=== PATIENT | male | born 1970 | race Caucasian/White ===

== ENCOUNTER → 2016-07-14 | Outpatient (REF) | payer OTHER ==
[2016-07-14 13:09] LABS: EOS # 0.3 K/mm3 (0.0-0.50); EOS % 5.3 % (0.0-3.0); LARGE UNSTAINED CELL # 0.1 K/mm3 (0.0-0.4); LARGE UNSTAINED CELL % 2.1 % (0.0-4.0); LYMPH % 19.1 % (24.0-44.0); MEAN CORPUSCULAR HGB CONC 33.9 g/dl (32.0-36.5); MEAN CORPUSCULAR VOLUME 88.5 fl (80.0-96.0); MONO # 0.5 K/mm3 (0.0-0.8); MONO % 10.6 % (0.0-5.0); NEUTROPHILS # 3.1 K/mm3 (1.8-7.7); NEUTROPHILS % 61.9 % (36.0-66.0); PLATELET COUNT, AUTOMATED 249 k/mm3 (150-450); RED CELL DISTRIBUTION WIDTH 13.1 % (11.5-14.5)
[2016-07-14 13:29] LABS: ALBUMIN 4.5 GM/DL (3.2-5.2); ALBUMIN/GLOBULIN RATIO 1.55 (1.00-1.93); ALKALINE PHOSPHATASE 91 U/L (45-117); ALT/SGPT 33 U/L (12-78); ANION GAP 9 MEQ/L (8-16); AST/SGOT 15 U/L (15-37); BILIRUBIN,TOTAL 0.4 MG/DL (0.2-1.0); BLOOD UREA NITROGEN 19 MG/DL (7-18); CARBON DIOXIDE LEVEL 30 MEQ/L (21-32); CHLORIDE LEVEL 104 MEQ/L (98-107); CHOLESTEROL LEVEL 187 MG/DL (<200); CREATININE FOR GFR 1.24 MG/DL (0.70-1.30); GLOMERULAR FILTRATION RATE > 60.0 (>60); GLUCOSE, FASTING 103 MG/DL (70-105); POTASSIUM SERUM 4.3 MEQ/L (3.5-5.1); SODIUM LEVEL 143 MEQ/L (136-145); TOTAL PROTEIN 7.4 GM/DL (6.4-8.2); TRIGLYCERIDES LEVEL 115 MG/DL (<150)
== END ==
LOC: M SFHCADAM 07:40
PROVIDERS: ATTEND Physician Assistant Medical
DX: Z00.00 Encounter for general adult medical examination without abnormal findings (principal)

== ENCOUNTER → 2019-09-11 | Outpatient (CLI) | payer OTHER, SELFPAY | LOC: M LABSMTC 13:20 | PROVIDERS: ATTEND Family Medicine | DX: Z03.818 Encounter for observation for suspected exposure to other biological agents ruled out (principal) ==

== ENCOUNTER → 2020-01-15 | Outpatient (REF) | payer OTHER ==
[~2020-01-15] MED LIST: ELIQ5TAB PO; IBUP-1730 PO; LORA-437 PO; LORA-622 PO; VITMTA PO
[2020-01-15 14:19] LABS: BASO % 0.5 % (0.0-1.0); EOS # 0.3 10^3/uL (0.0-0.5); EOS % 4.9 % (0.0-3.0); HEMATOCRIT 46.8 % (42.0-52.0); HEMOGLOBIN 15.6 g/dl (13.5-17.5); LYMPH # 1.5 10^3/uL (1.5-5.0); LYMPH % 26.6 % (24.0-44.0); MEAN CORPUSCULAR HEMOGLOBIN 29.5 pg (27.0-33.0); MEAN CORPUSCULAR HGB CONC 33.3 g/dl (32.0-36.5); MEAN CORPUSCULAR VOLUME 88.6 fl (80.0-96.0); MONO # 0.8 10^3/uL (0.0-0.8); MONO % 13.2 % (0.0-5.0); NEUTROPHILS # 3.1 10^3/uL (1.5-8.5); NEUTROPHILS % 54.6 % (36.0-66.0); PLATELET COUNT, AUTOMATED 245 10^3/uL (150-450); RED BLOOD COUNT 5.28 10^6/uL (4.30-6.10); WHITE BLOOD COUNT 5.7 10^3/uL (4.0-10.0)
[2020-01-15 14:33] LABS: ALBUMIN 3.9 GM/DL (3.2-5.2); ALT/SGPT 44 U/L (12-78); BILIRUBIN,TOTAL 0.4 MG/DL (0.2-1.0); BLOOD UREA NITROGEN 17 MG/DL (7-18); CALCIUM LEVEL 9.5 MG/DL (8.5-10.1); CARBON DIOXIDE LEVEL 26 MEQ/L (21-32); CHLORIDE LEVEL 108 MEQ/L (98-107); CHOLESTEROL LEVEL 167 MG/DL (<200); CHOLESTEROL RISK RATIO 4.513 (<5); CREATININE FOR GFR 1.07 MG/DL (0.70-1.30); GLOMERULAR FILTRATION RATE > 60.0 (>60); GLUCOSE, FASTING 100 MG/DL (70-100); HDL CHOLESTEROL 37 MG/DL (>40); LDL CHOLESTEROL 93 MG/DL (<100); NON-HDL-C 130 MG/DL; POTASSIUM SERUM 4.4 MEQ/L (3.5-5.1); SODIUM LEVEL 141 MEQ/L (136-145); TOTAL PROTEIN 7.1 GM/DL (6.4-8.2); TRIGLYCERIDES LEVEL 183 MG/DL (<150)
[2020-01-15 15:56] LABS: HEMOGLOBIN A1c 5.5 %
== END ==
LOC: M LABDRWAD 08:17
PROVIDERS: ATTEND Physician Assistant Medical
DX: Z00.00 Encounter for general adult medical examination without abnormal findings (principal); Z13.1 Encounter for screening for diabetes mellitus; Z13.220 Encounter for screening for lipoid disorders

== ENCOUNTER 2020-03-26 21:19 | Observation (INO) | payer OTHER ==
[~2020-03-26] VITALS: Ht 198.1 cm; Wt 101.5 kg
[2020-03-26] MEDS ORDERED: LORA-622 PO (21:24)
[2020-03-26] MEDS ORDERED: ASPIRIN 81 MG CHEW TABLET PO ONE (22:00)
--- NOTE | 2020-03-26 22:13 | REPVR ---
PROCEDURE INFORMATION: Exam: XR Chest, 1 View Exam date and time: 03/26/2020 10:03 PM Age: 49 years old Clinical indication: Chest pain TECHNIQUE: Imaging protocol: XR of the chest Views: 1 view. COMPARISON: No relevant prior studies available. FINDINGS: Lungs: Mild left base atelectasis or scar. Minimal linear scar in the right upper lobe. No focal infiltrates. Pleural space: Unremarkable. No pleural effusion. No pneumothorax. Heart/Mediastinum: Unremarkable. No cardiomegaly. Bones/joints: Unremarkable. IMPRESSION: 1. Mild left base atelectasis or scar. 2. Otherwise essentially negative chest. Electronically signed by: Tex Crane On 03/26/2020 22:13:35 PM
[2020-03-26 22:16] LABS: BASO % 0.3 % (0.0-1.0); EOS # 0.2 10^3/uL (0.0-0.5); EOS % 2.1 % (0.0-3.0); HEMATOCRIT 44.1 % (42.0-52.0); HEMOGLOBIN 14.5 g/dl (13.5-17.5); LYMPH # 1.3 10^3/uL (1.5-5.0); LYMPH % 14.5 % (24.0-44.0); MEAN CORPUSCULAR HEMOGLOBIN 28.7 pg (27.0-33.0); MEAN CORPUSCULAR HGB CONC 32.9 g/dl (32.0-36.5); MEAN CORPUSCULAR VOLUME 87.2 fl (80.0-96.0); MONO # 1.3 10^3/uL (0.0-0.8); MONO % 14.9 % (0.0-5.0); NEUTROPHILS # 6.1 10^3/uL (1.5-8.5); PLATELET COUNT, AUTOMATED 224 10^3/uL (150-450); RED BLOOD COUNT 5.06 10^6/uL (4.30-6.10)
[2020-03-26 22:29] LABS: PROTHROMBIN TIME 13.4 SECONDS (12.5-14.3)
[2020-03-26 22:30] LABS: PARTIAL THROMBOPLASTIN TIME 29.6 SECONDS (24.2-38.5)
[2020-03-26 22:44] LABS: ALBUMIN 3.9 GM/DL (3.2-5.2); ALT/SGPT 34 U/L (12-78); BILIRUBIN,DIRECT < 0.1 MG/DL (0.0-0.2); BILIRUBIN,TOTAL 0.5 MG/DL (0.2-1.0); BLOOD UREA NITROGEN 21 MG/DL (7-18); CARBON DIOXIDE LEVEL 27 MEQ/L (21-32); CHLORIDE LEVEL 106 MEQ/L (98-107); CK-MB VALUE MASS 1.8 NG/ML (<3.6); CPK CREATINE PHOSPHOKINASE 130 U/L (39-308); GLOMERULAR FILTRATION RATE > 60.0 (>60); GLUCOSE, FASTING 125 MG/DL (70-100); LIPASE 172 U/L (73-393); MB/CK RELATIVE INDEX 1.38 (< OR =4); POTASSIUM SERUM 3.8 MEQ/L (3.5-5.1); SODIUM LEVEL 141 MEQ/L (136-145); TOTAL PROTEIN 7.3 GM/DL (6.4-8.2); TROPONIN I < 0.02 NG/ML (< 0.10)
[2020-03-26] MEDS ORDERED: ISOVUE-370 76% 100ML VIAL As Ordered ONE (23:17)
--- NOTE | 2020-03-26 23:49 | REPVR ---
PROCEDURE INFORMATION: Exam: CT Angiography Chest With Contrast Exam date and time: 03/26/2020 10:29 PM Age: 49 years old Clinical indication: Chest pain; Type not specified; Additional info: Pleuritic L chest pain TECHNIQUE: Imaging protocol: Computed tomographic angiography of the chest with intravenous contrast. 3D rendering (Not supervised by radiologist): MIP and/or 3D reconstructed images were created by the technologist. Radiation optimization: All CT scans at this facility use at least one of these dose optimization techniques: automated exposure control; mA and/or kV adjustment per patient size (includes targeted exams where dose is matched to clinical indication); or iterative reconstruction. Contrast material: ISO; Contrast volume: 100 ml; Contrast route: INTRAVENOUS (IV); COMPARISON: CR PORTABLE CHEST X-RAY 03/26/2020 9:59 PM FINDINGS: Pulmonary arteries: The main pulmonary artery measures 33 mm. Mild pulmonary embolism involving the left lower lobe primarily a branch to the posterolateral aspect of the left lower lobe. Aorta: The ascending thoracic aorta measures 30 mm. Lungs: Mild bilateral lower lobe infiltrates and atelectasis and minimal right middle lobe and lingular tip fibro-atelectatic change. Pleural space: left pleural effusion. Heart: RV diameter is 4.5 cm, LV diameter is 4.4 cm. RV/LV ratio is 1.0. Lymph nodes: Unremarkable. No enlarged lymph nodes. Bones/joints: Unremarkable. No acute fracture. Soft tissues: Unremarkable. IMPRESSION: 1. Mild left lower lobe pulmonary embolism. 2. Trace left pleural effusion with mild bilateral lower lobe infiltrates and atelectasis and minimal lingular and right middle lobe fibro-atelectatic change. 3. RV/LV ratio of 1.0. Electronically signed by: Tex Crane On 03/26/2020 23:48:32 PM
--- NOTE | 2020-03-26 23:53 | REPVR ---
PROCEDURE INFORMATION: Exam: CT Abdomen And Pelvis With Contrast Exam date and time: 03/26/2020 10:29 PM Age: 49 years old Clinical indication: Abdominal pain; Generalized; Additional info: Left sided pain TECHNIQUE: Imaging protocol: Computed tomography of the abdomen and pelvis with intravenous contrast. Radiation optimization: All CT scans at this facility use at least one of these dose optimization techniques: automated exposure control; mA and/or kV adjustment per patient size (includes targeted exams where dose is matched to clinical indication); or iterative reconstruction. Contrast material: ISO; Contrast volume: 100 ml; Contrast route: INTRAVENOUS (IV); COMPARISON: No relevant prior studies available. FINDINGS: Lungs: Mild bibasilar fibro-atelectatic change with minimal infiltrates in the lower lobes and possibly the lingular tip. There is mild pulmonary embolism in the left lower lobe. Liver: The liver attenuation is 71 Hounsfield units and the spleen is 112 Hounsfield units. Gallbladder and bile ducts: The gallbladder is contracted with no stones. Pancreas: Normal. No ductal dilation. Spleen: Normal. No splenomegaly. Adrenal glands: Normal. No mass. Kidneys and ureters: Severely atrophic/dysplastic left kidney. Stomach and bowel: Unremarkable. No obstruction. No mucosal thickening. Appendix: There are no changes of appendicitis. A normal appendix is not seen. Intraperitoneal space: Elongated and redundant sigmoid which extends into the upper right abdomen. Vasculature: The aorta demonstrates no aneurysm or dissection. Lymph nodes: Unremarkable. No enlarged lymph nodes. Urinary bladder: Unremarkable as visualized. Reproductive: Unremarkable as visualized. Bones/joints: Unremarkable. No acute fracture. Soft tissues: Unremarkable. IMPRESSION: 1. Mild bibasilar fibro-atelectatic change with minimal infiltrates in the lower lobes and possibly lingular tip. 2. Mild pulmonary embolism in the left lower lobe. 3. Fatty infiltration of the liver. 4. Severely atrophic/dysplastic left kidney. 5. Otherwise negative CT abdomen/pelvis. Electronically signed by: Tex Crane On 03/26/2020 23:52:54 PM
[2020-03-27] MEDS ORDERED: APIXABAN 5 MG TAB (ELIQUIS) PO ONE (00:15)
[2020-03-27] MEDS ORDERED: VITMTA PO (00:24)
[2020-03-27] MEDS ORDERED: LORA-437 PO (00:24)
[2020-03-27] MEDS ORDERED: IBUP-1730 PO (00:24)
[2020-03-27] MEDS ORDERED: ACETAMINOPHEN TAB 650MG DOSE (2X325MG) PO PRN (00:45)
[2020-03-27] MEDS ORDERED: PERCOCET 5MG/325MG TAB PO PRN (00:45)
--- NOTE | 2020-03-27 01:06 | HPEPDOC ---
[facility] Medical History & Physical Date of Admission Mar 27, 2020 Date of Service: Mar 27, 2020 History and Physical CHIEF COMPLAINT: Shortness of breath since 9 PM HISTORY OF PRESENT ILLNESS: 49-year-old male with past medical history significant for hypertension, varicose vein presented to the emergency room with acute onset of pleuritic chest pain and worsening shortness of breath since 9 PM, unable to sleep despite taking 2 ibuprofen tablets. Patient states that he had pain in the left upper arm up to the shoulder radiating down from the armpit on the left side, described as sharp, without fever, chills, cough, and no relief with ibuprofen, unchanged by position or activity. He denies any history of coronary artery disease, CHF, paroxysmal nocturnal dyspnea, lower extremity edema, hypercoagulable state, traumatic injuries, prolonged travel, orthopedic surgeries, or immobility,. He denies palpitations, lightheadedness or dizziness. No prior history of PE or DVT. In the ER, patient was tachycardic sinus 104bpm, afebrile, 98% o2 sat on room air, but was found to have a left lower lobe pulmonary embolism and small left pleural effusion on CT angio Chest. CT abd/pelvis: severely atrophic left kidney. PAST MEDICAL HISTORY: Hypertension, varicose vein PAST SURGICAL HISTORY: Appendectomy, 1995 2014. Left leg varicose veins removed SOCIAL HISTORY: . No alcohol, drug use or tobacco abuse FAMILY HISTORY: Father: Alive, CAD, stents, diabetes Mother: Alive and healthy ALLERGIES: Please see below. REVIEW OF SYSTEMS: 10 point review of systems negative aside from positive findings on HPI HOME MEDICATIONS: Please see below. PHYSICAL EXAMINATION: VITAL SIGNS: See below GENERAL APPEARANCE: No cyanosis. No use of respiratory accessory muscles able to complete his sentences. No conversational dyspnea HEENT: Anicteric, no jaundice, no JVD, thyromegaly or cervical lymphadenopathy CARDIOVASCULAR: S1, S2, sinus tachycardia LUNGS: Diminished bilateral bases. Fine crackles at the left base. No wheezes or rales ABDOMEN: Positive bowel sounds, soft, nontender, nondistended. No rebound, guarding EXTREMITIES: No cyanosis, clubbing or pitting edema LABORATORY DATA/MICROBIOLOGY: See below. IMAGING: CT CHEST ANGIO: THIS REPORT CONTAINS FINDINGS THAT MAY BE CRITICAL TO PATIENT CARE. The findings were verbally communicated via telephone conference with PAULINE PAGE at 12:04 AM EST on 03/27/2020. The findings were acknowledged and understood. Electronically signed by: Stacy Grimes On 03/27/2020 00:04:25 AM DD: STACY GRIMES MD 03/26/20 2229 DT: MAINE 03/27/20 0004 DS: MUSTAPHA 03/27/20 0004 PROCEDURE INFORMATION: Exam: CT Angiography Chest With Contrast Exam date and time: 03/26/2020 10:29 PM Age: 49 years old Clinical indication: Chest pain; Type not specified; Additional info: Pleuritic L chest pain TECHNIQUE: Imaging protocol: Computed tomographic angiography of the chest with intravenous contrast. 3D rendering (Not supervised by radiologist): MIP and/or 3D reconstructed images were created by the technologist. Radiation optimization: All CT scans at this facility use at least one of these dose optimization techniques: automated exposure control; mA and/or kV adjustment per patient size (includes targeted exams where dose is matched to clinical indication); or iterative reconstruction. Contrast material: ISO; Contrast volume: 100 ml; Contrast route: INTRAVENOUS (IV); COMPARISON: CR PORTABLE CHEST X-RAY 03/26/2020 9:59 PM FINDINGS: Pulmonary arteries: The main pulmonary artery measures 33 mm. Mild pulmonary embolism involving the left lower lobe primarily a branch to the posterolateral aspect of the left lower lobe. Aorta: The ascending thoracic aorta measures 30 mm. Lungs: Mild bilateral lower lobe infiltrates and atelectasis and minimal right middle lobe and lingular tip fibro-atelectatic change. Pleural space: left pleural effusion. Heart: RV diameter is 4.5 cm, LV diameter is 4.4 cm. RV/LV ratio is 1.0. Lymph nodes: Unremarkable. No enlarged lymph nodes. Bones/joints: Unremarkable. No acute fracture. Soft tissues: Unremarkable. IMPRESSION: 1. Mild left lower lobe pulmonary embolism. 2. Trace left pleural effusion with mild bilateral lower lobe infiltrates and atelectasis and minimal lingular and right middle lobe fibro-atelectatic change. 3. RV/LV ratio of 1.0. Electronically signed by: Stacy Grimes On 03/26/2020 23:48:32 PM CTABD/PELVIS: PROCEDURE INFORMATION: Exam: CT Abdomen And Pelvis With Contrast Exam date and time: 03/26/2020 10:29 PM Age: 49 years old Clinical indication: Abdominal pain; Generalized; Additional info: Left sided pain TECHNIQUE: Imaging protocol: Computed tomography of the abdomen and pelvis with intravenous contrast. Radiation optimization: All CT scans at this facility use at least one of these dose optimization techniques: automated exposure control; mA and/or kV adjustment per patient size (includes targeted exams where dose is matched to clinical indication); or iterative reconstruction. Contrast material: ISO; Contrast volume: 100 ml; Contrast route: INTRAVENOUS (IV); COMPARISON: No relevant prior studies available. FINDINGS: Lungs: Mild bibasilar fibro-atelectatic change with minimal infiltrates in the lower lobes and possibly the lingular tip. There is mild pulmonary embolism in the left lower lobe. Liver: The liver attenuation is 71 Hounsfield units and the spleen is 112 Hounsfield units. Gallbladder and bile ducts: The gallbladder is contracted with no stones. Pancreas: Normal. No ductal dilation. Spleen: Normal. No splenomegaly. Adrenal glands: Normal. No mass. Kidneys and ureters: Severely atrophic/dysplastic left kidney. Stomach and bowel: Unremarkable. No obstruction. No mucosal thickening. Appendix: There are no changes of appendicitis. A normal appendix is not seen. Intraperitoneal space: Elongated and redundant sigmoid which extends into the upper right abdomen. Vasculature: The aorta demonstrates no aneurysm or dissection. Lymph nodes: Unremarkable. No enlarged lymph nodes. Urinary bladder: Unremarkable as visualized. Reproductive: Unremarkable as visualized. Bones/joints: Unremarkable. No acute fracture. Soft tissues: Unremarkable. IMPRESSION: 1. Mild bibasilar fibro-atelectatic change with minimal infiltrates in the lower lobes and possibly lingular tip. 2. Mild pulmonary embolism in the left lower lobe. 3. Fatty infiltration of the liver. 4. Severely atrophic/dysplastic left kidney. 5. Otherwise negative CT abdomen/pelvis. Electronically signed by: Stacy Grimes On 03/26/2020 23:52:54 PM DD: STACY GRIMES MD 03/26/202228 DT: MAINE 03/26/202351 DS: MUSTAPHA 03/26/202351 ASSESSMENT AND PLAN:49-year-old male with past medical history significant for hypertension, varicose vein presented to the emergency room with acute onset of pleuritic chest pain and worsening shortness of breath since 9 PM, unable to sleep despite taking 2 ibuprofen tablets. Patient states that he had pain in the left upper arm up to the shoulder radiating down from the armpit on the left side, described as sharp, without fever, chills, cough, and no relief with ibuprofen, unchanged by position or activity. He denies any history of coronary artery disease, CHF, paroxysmal nocturnal dyspnea, lower extremity edema, hypercoagulable state, traumatic injuries, prolonged travel, orthopedic surgeries, or immobility,. He denies palpitations, lightheadedness or dizziness. No prior history of PE or DVT. In the ER, patient was tachycardic sinus 104bpm, afebrile, 98% o2 sat on room air, but was found to have a left lower lobe pulmonary embolism and small left pleural effusion on CT angio Chest. CT abd/pelvis: severely atrophic left kidney. Acute Left lower lobe pulmonary embolism eliquis loading dose for 7 days at 10mg bid, followed by 5mg bid. check us le r/o DVT. hypercoag workup with outpt fu w pcp to discuss results. supplemental oxygen if o2sat<88% on room air with ambulation. Left Pleural effusion/B/l infiltrates check respiratory panel, procalcitonin, esr, crp, bnp, covid-19 and 2D Echo. no empiric abx. Incidental finding severely atrophic left kidney avoid NSAIDS, renally dose medications. will need outpt renal profile surveillance. Fatty liver denies ETOH use. check lipid panel HTN on no meds. DVT prophylaxis on eliquis Vital Signs Vital Signs Date Time Temp Pulse Resp B/P (MAP) Pulse Ox O2 Delivery O2 Flow Rate FiO2 03/26/20 21:20 98.5 104 16 145/87 (106) 96 Room Air Laboratory Data Labs 24H Laboratory Tests 2 03/26/20 22:01: Immature Granulocyte % (Auto) 0.2, Neutrophils (%) (Auto) 68.0H, Lymphocytes (%) (Auto) 14.5L, Monocytes (%) (Auto) 14.9H, Eosinophils (%) (Auto) 2.1, Basophils (%) (Auto) 0.3, Neutrophils # (Auto) 6.1, Lymphocytes # (Auto) 1.3L, Monocytes # (Auto) 1.3H, Eosinophils # (Auto) 0.2, Basophils # (Auto) 0.0, Nucleated Red Blood Cells % (auto) 0.0, Prothrombin Time 13.4, Prothromb Time International Ratio 1.00, Activated Partial Thromboplast Time 29.6, Anion Gap 8, Glomerular Filtration Rate > 60.0, Calcium Level 9.0, Total Bilirubin 0.5, Direct Bilirubin < 0.1, Aspartate Amino Transf (AST/SGOT) 15, Alanine Aminotransferase (ALT/SGPT) 34, Alkaline Phosphatase 82, Total Creatine Kinase 130, Creatine Kinase MB 1.8, Creatine Kinase MB Relative Index 1.38, Troponin I < 0.02, Total Protein 7.3, Albumin 3.9, Albumin/Globulin Ratio 1.1, Lipase 172 CBC/BMP Laboratory Tests 03/26/20 22:01 Home Medications Scheduled Loratadine (Loratadine) 10 Mg Tablet, 10 MG PO DAILY Multivitamins (Thera M Plus Tablet) 1 Each Tablet, 1 TAB PO DAILY Scheduled PRN Ibuprofen (Ibuprofen) 200 Mg Tablet, 400 MG PO Q6H PRN for PAIN Allergies Coded Allergies: No Known Allergies (Unverified , 03/26/20) A-FIB/CHADSVASC A-FIB History Current/History of A-Fib/PAF?: No Current PO Anticoag Therapy: No Age/Risk Factor Scoring CHADSVASC: CHADSVASC Response (Comments) Value Age Risk Factor Age < 65 years old 0 Gender Risk Factor Male 0 Hx of CHF No 0 Hx of HTN Yes 1 Hx of Stroke/TIA/or VTE No 0 Hx of Diabetes No 0 Hx of Vascular Disease No 0 Total 1 Treatment Treatment ordered: NONE GRADY JOSEPH MD Mar 27, 2020 00:57
--- NOTE | 2020-03-27 03:38 | REPVR ---
PROCEDURE INFORMATION: Exam: US Duplex Left Upper Extremity Veins, Limited Exam date and time: 03/27/2020 3:31 AM Age: 49 years old Clinical indication: Pain; Arm, upper; Left; Additional info: Left arm pain /pe TECHNIQUE: Imaging protocol: Real-time Duplex ultrasound of the Left Upper Extremity with 2-D mesa scale, color Doppler flow and spectral waveform analysis with image documentation. Limited exam focused on the left upper extremity veins. COMPARISON: No relevant prior studies available. FINDINGS: Left deep veins: Unremarkable. Axillary and brachial veins are patent throughout without thrombus. Normal Doppler waveforms. Normal compressibility and/or augmentation response. Visualized internal jugular and subclavian veins are patent. Left superficial veins: Unremarkable. Visualized cephalic and basilic veins are patent without thrombus. Soft tissues: Unremarkable. IMPRESSION: Negative left upper extremity venous duplex exam without evidence of deep venous thrombosis. Electronically signed by: Tex Crane On 03/27/2020 03:38:02 AM
[2020-03-27 05:15] VITALS: BP 152/95
[2020-03-27 07:17] LABS: C REACTIVE PROTEIN QUANTITATIV 3.97 MG/DL (0.00-0.30); CHOLESTEROL LEVEL 147 MG/DL (<200); CHOLESTEROL RISK RATIO 3.266 (<5); CK-MB VALUE MASS 1.8 NG/ML (<3.6); CPK CREATINE PHOSPHOKINASE 111 U/L (39-308); HDL CHOLESTEROL 45 MG/DL (>40); INR 1.16; LDL CHOLESTEROL 86 MG/DL (<100); MB/CK RELATIVE INDEX 1.62 (< OR =4); NON-HDL-C 102 MG/DL; PROTHROMBIN TIME 15.1 SECONDS (12.5-14.3); TRIGLYCERIDES LEVEL 79 MG/DL (<150); TROPONIN I < 0.02 NG/ML (< 0.10)
[2020-03-27 07:18] LABS: PARTIAL THROMBOPLASTIN TIME 34.9 SECONDS (24.2-38.5)
[2020-03-27 08:00] VITALS: BP 147/79
[2020-03-27] MEDS ORDERED: MULTIVITAMINS/MINERALS THERAP 1 TAB PO SCH (09:00)
[2020-03-27] MEDS ORDERED: LORATADINE 10 MG TAB PO SCH (09:00)
[2020-03-27] MEDS ORDERED: APIXABAN 5 MG TAB (ELIQUIS) PO SCH (09:00)
[2020-03-27 10:26] LABS: DRVV SCREEN 84.2 SEC
[2020-03-27 10:29] LABS: PTT LUPUS TYPE ANTICOAG SCREEN 2.1 (0-1.2)
[2020-03-27 10:31] LABS: HEMOGLOBIN A1c 5.4 %
[2020-03-27 10:34] LABS: DRVV CONFIRM 54.9 SEC; LUPUS CONFIRM RATIO 1.5
[2020-03-27 10:35] LABS: NORMALIZED RATIO 1.4 (0.00-1.20)
--- NOTE | 2020-03-27 11:01 | DS.PDOC ---
Discharge Summary General Date of Admission Mar 26, 2020 at 21:20 Date of Discharge 03/27/20 Attending Physician: KRISSY CLEVELAND MD Discharge Summary PROCEDURES PERFORMED DURING STAY: None ADMITTING DIAGNOSES: 1. Acute Left Lower Lobe Pulmonary Embolism 2. Left Pleural Effusion/B/I Infiltrates 3. Severely Atrophic Left Kidney 4. Fatty Liver DISCHARGE DIAGNOSES: 1. Acute Left Lower Lobe Pulmonary Embolism 2. Left Pleural Effusion/B/I Infiltrates 3. Severely Atrophic Left Kidney 4. Fatty Liver COMPLICATIONS/CHIEF COMPLAINT: Shortness of Breath HISTORY OF PRESENT ILLNESS: Venkatesh Lange is a 49 yr old male w/ PMH of HTN, varicose veins presented to the ED w/ Shortness of Breath. Patient states that on 03/26/20 around 9 PM, he had pain in his left shoulder down to his arm, then the pain radiated to the left side near his abdomen and left side. He took 2 ibuprofen tablets and tried going to sleep but was unable to do so. His , who is a nurse, told him to come to the ED. He described the pain as constant and sharp, as if someone was stabbing him with a knife. He states that even when he was sitting down and watching TV it hurt. He rates the pain a 10/10. When he took a deep breath in, the pain worsened. Nothing makes the pain better or worst from what he knows. He states that he has not traveled anywhere recently or been on any long car rides or trips and that he has no history of PE or DVT. HOSPITAL COURSE: In ED, patient was tachycardic sinus 104 bpm, afebrile, 98% O2 on room air. On CT Angio of Chest, patient was found to have a left lower lobe pulmonary embolism and small left pleural effusion. On CT abdomen/pelvis, patient was incidentally found to have severely atrophic left kidney as well as fatty liver. With regards to fatty liver, patient denied alcohol use and lipid panel showed no abnormalities. Vascular ultrasound was done as well as chest x- ray (see below). Patient's troponin levels did not show any abnormalities, CRP was elevated. DISCHARGE MEDICATIONS: Please see below. ALLERGIES: Please see below. PHYSICAL EXAMINATION ON DISCHARGE: VITAL SIGNS: Please see below. GENERAL: Patient in no acute distress, alert and oriented x3 HEENT: No thyromegaly CARDIOVASCULAR EXAMINATION: RRR, no murmurs or gallops, S1 and S2 normal, no carotid or renal bruits bilaterally RESPIRATORY EXAMINATION: Left lower lung bases exhibited crackles, other lung gonzales were clear to auscultation w/ no wheezing or crackles ABDOMINAL EXAMINATION: LUQ tenderness to light palpation, left flank tenderness to light palpation, abdomen soft, nondistended, no hepatosplenomegaly, normal bowel sounds x4 EXTREMITIES: No pitting edema bilaterally, +2/4 pedal pulses bilaterally LABORATORY DATA: Please see below. IMAGING: -Chest X-Ray on 03/26/[address] Malone showed mild left base atelectasis or scar, otherwise essentially negative chest -CT Angiography Chest on 03/26/[address] Malone showed mild left lower lobe pulmonary embolism, trace left pleural effusion w/ mild bilateral lower lobe infiltrates and atelectasis and minimal lingular and right middle lobe firbo-atelectatic change; RV/LV ratio of 1.0 -CT Abdomen and Pelvis w/ IV Contrast on 03/26/[address] Malone showed mild bibasilar fibro-atelectatic change w/ minimal infiltrates in the lower lobes and possibly lingular tip; mild pulmonary embolism in the left lower lobe; fatty infiltration of the liver; Severely atrophic dysplastic left kidney; otherwise negative CT abdomen/pelvis -US Duplex Left Upper Extremity Veins on 03/26/[address] Yang showed negative left upper extremity venous duplex exam w/o evidence of deep venous thrombosis -Renal Ultrasound done on 03/27/[address] Yang showed no renal artery stenosis by Doppler criteria; right kidney is demonstrating compensatory hypertrophy; no mass or cyst; no hydronephrosis; Normal-appearing right kidney; the left kidney is diminutive on CT as a tiny dysplastic organ remnant; it is not visible sonographically PROGNOSIS: Good ACTIVITY: As tolerated DIET: Regular DISCHARGE PLAN: -Patient will be given Renal Doppler US today to R/O Renal Artery Stenosis and will be discharged -Will continue Eliquis use while at home, given 7 days loading dose at 10 mg BID, followed by 5 mg BID. -Patient will follow-up w/ PCP in 7-10 days -Patient should follow up w/ outpatient nephrology on severe atrophic left kidney DISCHARGE INSTRUCTIONS: 1. Patient to continue Eliquis at home 7 days at 10 mg BID, followed by 5 mg BID 2. Patient will follow-up w/ PCP in 3-5 days 3. Patient should follow up w/ outpatient nephrology on severe atrophic left kidney ITEMS TO FOLLOWUP ON ON OUTPATIENT: 1. Acute Left Lower Lobe PE 2. Severe Atrophic Left Kidney 3. Fatty Liver DISCHARGE CONDITION: Stable TIME SPENT ON DISCHARGE: Greater than 30 minutes. Vital Signs/I&Os Vital Signs Date Time Temp Pulse Resp B/P (MAP) Pulse Ox O2 Delivery O2 Flow Rate FiO2 03/27/20 08:00 97.5 96 18 147/79 (101) 96 Room Air I&O- Last 24 Hours up to 6 AM 03/27/20 06:00 Intake Total 0 ml Output Total 0 ml Balance 0 ml Laboratory Data Labs 24H Laboratory Tests 2 03/26/20 22:01: Immature Granulocyte % (Auto) 0.2, Neutrophils (%) (Auto) 68.0H, Lymphocytes (%) (Auto) 14.5L, Monocytes (%) (Auto) 14.9H, Eosinophils (%) (Auto) 2.1, Basophils (%) (Auto) 0.3, Neutrophils # (Auto) 6.1, Lymphocytes # (Auto) 1.3L, Monocytes # (Auto) 1.3H, Eosinophils # (Auto) 0.2, Basophils # (Auto) 0.0, Nucleated Red Blood Cells % (auto) 0.0, Prothrombin Time 13.4, Prothromb Time International Ratio 1.00, Activated Partial Thromboplast Time 29.6, Anion Gap 8, Glomerular Filtration Rate > 60.0, Calcium Level 9.0, Total Bilirubin 0.5, Direct Bilirubin < 0.1, Aspartate Amino Transf (AST/SGOT) 15, Alanine Aminotransferase (ALT/SGPT) 34, Alkaline Phosphatase 82, Total Creatine Kinase 130, Creatine Kinase MB 1.8, Creatine Kinase MB Relative Index 1.38, Troponin I < 0.02, Total Protein 7.3, Albumin 3.9, Albumin/Globulin Ratio 1.1, Lipase 172 03/27/20 06:26: Prothrombin Time 15.1H, Prothromb Time International Ratio 1.16, Activated Partial Thromboplast Time 34.9, Total Creatine Kinase 111, Creatine Kinase MB 1.8, Creatine Kinase MB Relative Index 1.62, Troponin I < 0.02, Erythrocyte Sedimentation Rate 9, C-Reactive Protein, Quantitative 3.97H, Triglycerides Level 79, Total Cholesterol 147, LDL Cholesterol 86, Non-HDL Cholesterol (LDL + VLDL) 102, Total HDL Cholesterol 45, Cholesterol/HDL Ratio 3.266 CBC/BMP Laboratory Tests 03/26/20 22:01 Microbiology Microbiology 03/27/20 Respiratory Virus Panel (PCR) ([facility]) - Final, Complete Discharge Medications Scheduled Apixaban (Eliquis) 5 Mg Tablet, 10 MG PO BID Take 10mg twice a day for 7 days. Then START 5mg twice a day Apixaban (Eliquis) 5 Mg Tablet, 5 MG PO BID Take 1 tab twice a day Loratadine (Loratadine) 10 Mg Tablet, 10 MG PO DAILY, (Reported) Multivitamins (Thera M Plus Tablet) 1 Each Tablet, 1 TAB PO DAILY, (Reported) Allergies Coded Allergies: No Known Allergies (Unverified , 03/26/20) GME ATTESTATION GME ATTESTATION My faculty preceptor for this patient encounter was physically present during the encounter and was fully available. All aspects of the patient interview, examination, medical decision making process, and medical care plan development were reviewed and approved by the faculty preceptor. The faculty preceptor is aware and concurs with the plan as stated in the body of this note and will attest to such by his/her cosignature. GME ATTESTATION GME ATTESTATION My faculty preceptor for this patient encounter was physically present during the encounter and was fully available. All aspects of the patient interview, examination, medical decision making process, and medical care plan development were reviewed and approved by the faculty preceptor. The faculty preceptor is aware and concurs with the plan as stated in the body of this note and will attest to such by his/her cosignature. ATTENDING NOTE Attending Note: Patient seen and examined independently. Agree with student's note. CHRISTIANO GAN OMS-IV Mar 27, 2020 11:01 KRISSY CLEVELAND MD Mar 27, 2020 18:13
--- NOTE | 2020-03-27 11:22 | REP ---
INDICATION: HTN. COMPARISON: CT 03/26/2020 TECHNIQUE: STANDARD RENAL ULTRASOUND PELVIC DUPLEX DOPPLER INTERROGATION FOR RENAL ARTERY STENOSIS EVALUATION. FINDINGS: RENAL ULTRASOUND: The right kidney is 13.1 x 7.1 x 7 cm. Its cortical echogenicity and thickness are normal there is some sinus lipomatosis however. There is no hydronephrosis or hydroureter. Cortical thickness up to 2 cm. The left renal fossa shows no of visible kidney by sonography. When reviewing the CT, the diminutive, dysplastic kidney is at least 10 cm from the skin surface. Bladder was not distended for this examination. The prostate is seen measuring 3 x 2.9 x 4.9 cm above volume calculation this would be 22 cc it is not grossly enlarged. No renal or bladder stone identified. RENAL ARTERY DOPPLER ULTRASOUND: The right kidney is 13.1 cm long. Peak renal artery velocity 128 cm/S. Peak aortic velocity 94 cm/S the renal aortic ratio 1.26. Resistive index for the upper, mid and lower poles of the right kidney was 0.61, 0.61 and 0.63 respectively. The [place] or a tate time for these areas was 0.046, 0.042 and 0.042 seconds. No left kidney is visualized sonographically IMPRESSION: 1. No renal artery stenosis by Doppler criteria. Involving the right kidney. It is demonstrating compensatory hypertrophy. No mass or cyst. No hydronephrosis. Normal-appearing right kidney. 2. The left kidney is diminutive on CT as a tiny dysplastic organ remnant. It is not visible sonographically. <Electronically signed by Cisco Sherwood > 03/27/20 [id number]
[2020-03-27 12:00] VITALS: BP 116/67
[2020-03-27] MEDS ORDERED: ELIQ5TAB PO (12:10)
--- NOTE | 2020-03-28 07:00 | ECHO ---
DATE OF PROCEDURE: 03/27/2020 Age: 49 Gender: Male Height: 198 cm Weight: 102 kg REFERRING PHYSICIAN: Joy Yang MD INDICATION: Localized edema, unspecified. MEASUREMENTS: 2D Measurements: Interventricular septum 0.73 cm Posterior wall 0.72 cm Left ventricle diastole 5.1 cm Aortic root 3.4 cm Left atrium 3.8 cm Left atrial volume index 28 cm Inferior vena cava 1.9 cm with normal respiratory variation Doppler Measurements: No aortic stenosis No aortic regurgitation No mitral stenosis No mitral regurgitation Aortic valve velocity 106 cm/s LVOT velocity 111 cm/s LVOT VTI 23.0 cm Mitral E velocity 50.2 cm/s Mitral A velocity 60 cm/s Trace tricuspid regurgitation Very mild pulmonic regurgitation MITRAL ANNULAR TISSUE DOPPLER E prime septal 8.8 cm/s, E prime lateral 10.1 cm/s DESCRIPTION: Rhythm was sinus. Image quality was fair. No pericardial effusion. This was a 2D, M-mode, color flow Doppler, and pulsed wave Doppler examination including mitral annular tissue Doppler. CONCLUSIONS: 1. Normal left ventricle internal dimensions and wall thickness. Normal regional left ventricular (LV) wall motion and wall thickening. Normal left ventricular (LV) systolic function. Left ventricular ejection fraction (LVEF) 60% by visual estimate. Normal left ventricular (LV) diastolic function. 2. Suggestive of normal central venous pressure. 3. Otherwise normal appearing echocardiogram Doppler findings. MTDD
--- NOTE | 2020-03-28 18:47 | ECGEPIP ---
[facility] - ED Test Date: 2020-03-26 Pat Name: JENNY GARCIA Department: Room: - Gender: Male Continuous Improvement Coordinator: : 1970 Requested By: GEMMA Anderson Order Number: [id number] Reading MD: Michelle Traore Measurements Intervals [place] Rate: 105 P: 28 DE: 186 QRS: 39 QRSD: 86 T: 21 QT: 308 QTc: 407 Interpretive Statements SINUS TACHYCARDIA ABNORMAL RHYTHM ECG NO PRIOR Electronically Signed on 03-28-2020 18:46:48 EST by Michelle Traore
--- NOTE | 2020-03-28 18:50 | ECGEPIP ---
[facility] - ED Test Date: 2020-03-27 Pat Name: JENNY GARCIA Department: Room: [place] [address] Gender: Male Database Designer: magdalene : 1970 Requested By: PAULINE Marcus Order Number: [id number] Reading MD: Michelle Traore Measurements Intervals [place] Rate: 81 P: 15 MT: 198 QRS: 33 QRSD: 92 T: 22 QT: 344 QTc: 401 Interpretive Statements SINUS RHYTHM DECREASED RATE 03/26/20 Electronically Signed on 03-28-2020 18:50:28 EST by Michelle Traore
[2020-04-01 18:26] LABS: ANTI THROMBIN 3 ANTIGEN IMMUNO 100 % (72-124); ANTI THROMBIN 3 FUNCT ACTIVITY 124 % (75-135); ANTINUCLEAR ANTIBODIES DIRECT Negative (Negative); CARDIOLIPIN IGA ANTIBODY <9 APL U/mL (0-11); CARDIOLIPIN IGG ANTIBODY <9 GPL U/mL (0-14); CARDIOLIPIN IGM ANTIBODY 12 MPL U/mL (0-12); HEXAGONAL PHASE PHOSPHOLIPID 5 sec (0-11)
[2020-04-02] MEDS ORDERED: APIXABAN 5 MG TAB (ELIQUIS) PO SCH (21:00)
== END 2020-03-27 17:34 | disposition home or self-care (01) ==
LOC: M ED 21:19 → M ED INP 21:20 → ENRESERV 03-27 04:13 → M PCU 03-27 05:14
PROVIDERS: ADMIT General Practice; ATTEND General Practice
DX: I26.99 Other pulmonary embolism without acute cor pulmonale (principal); J90 Pleural effusion, not elsewhere classified; N26.1 Atrophy of kidney (terminal); K76.0 Fatty (change of) liver, not elsewhere classified; I10 Essential (primary) hypertension; Z79.01 Long term (current) use of anticoagulants; Z79.899 Other long term (current) drug therapy
CPT/HCPCS: 36415; 71045; 71275; 74177; 76775; 80048; 80061; 80076; 81240; 82550; 82553; 83036; 83090; 83690; 84484; 85025; 85300; 85301; 85598; 85610; 85613; 85652; 85730; 86038; 86140; 86147; 87486; 87581; 87633; 87798; 93005; 93041; 93306; 93971; 93975; 94760; 99285; Q9967

== ENCOUNTER → 2020-06-27 | Outpatient (REF) | payer OTHER ==
[~2020-06-27] MED LIST changes: -LORA-437 PO; +LORA-931 PO
[2020-06-27 18:55] LABS: COMPLEMENT C3 133 MG/DL (90-180); COMPLEMENT C4 26 MG/DL (10-40)
== END ==
LOC: M LAB REF 16:45
PROVIDERS: ATTEND Internal Medicine Nephrology
DX: I26.09 Other pulmonary embolism with acute cor pulmonale (principal); R80.9 Proteinuria, unspecified

== ENCOUNTER → 2020-07-01 | Outpatient (REF) | payer OTHER | LOC: M LAB REF 16:57 | PROVIDERS: ATTEND Internal Medicine Nephrology | DX: I26.09 Other pulmonary embolism with acute cor pulmonale (principal) ==

== ENCOUNTER → 2021-01-23 | Outpatient (REF) | payer OTHER | LOC: M SFHCADAM 09:59 | PROVIDERS: ATTEND Physician Assistant Medical | DX: I26.93 Single subsegmental thrombotic pulmonary embolism without acute cor pulmonale (principal) ==

== ENCOUNTER → 2021-03-06 | Outpatient (REF) | payer OTHER | LOC: M LAB REF 17:59 → M LABDRWAD 17:59 | PROVIDERS: ATTEND Internal Medicine Cardiovascular Disease | DX: R06.00 Dyspnea, unspecified (principal) ==

== ENCOUNTER → 2021-03-17 | Outpatient (CLI) | payer OTHER ==
--- NOTE | 2021-03-17 09:21 | PFTRPT ---
Height: 78.00 Inches Weight: 220.00 Lbs BSA: 2.35 Diagnosis: R06.00 DATE: 03/17/2021 ORDERING PHYSICIAN: Jose Dotson MD Pre and post bronchodilator studies have excellent technical quality. Forced vital capacity is reduced. FEV1 is in proportion. Obstructive index is therefore normal. Expiratory limit of the flow-volume loop does suggest at least some degree of flow rate limitation. No significant bronchodilator response is identified. Total lung capacity is normal. Residual volume is borderline for air trapping. Diffusing capacity is normal. Hemoglobin is acceptable at 15.2. Airway resistance and conductance are normal. IMPRESSION: Cannot rule out some degree of underlying air trapping. Clinical correlation is suggested. MTDD
== END ==
LOC: M CARPUL 08:44
PROVIDERS: ATTEND Internal Medicine Cardiovascular Disease
DX: R06.00 Dyspnea, unspecified (principal)

== ENCOUNTER 2022-06-11 07:23 | Emergency (ER) | payer OTHER, SELFPAY ==
[~2022-06-11] VITALS: Ht 198.1 cm; Wt 101.6 kg
[2022-06-11 07:24] VITALS: BP 130/76
[2022-06-11] MEDS ORDERED: IBUP200T46 PO (07:33)
[2022-06-11] MEDS ORDERED: LOSA25TA13 PO (07:33)
[2022-06-11 08:07] LABS: BASO % 0.2 % (0.0-1.0); EOS # 0.1 10^3/uL (0.0-0.5); EOS % 1.2 % (0.0-3.0); HEMATOCRIT 42.3 % (42.0-52.0); HEMOGLOBIN 13.9 g/dl (13.5-17.5); LYMPH # 0.7 10^3/uL (1.5-5.0); MEAN CORPUSCULAR HEMOGLOBIN 28.9 pg (27.0-33.0); MEAN CORPUSCULAR HGB CONC 32.9 g/dl (32.0-36.5); MEAN CORPUSCULAR VOLUME 87.9 fl (80.0-96.0); MONO # 1.2 10^3/uL (0.0-0.8); MONO % 13.5 % (2.0-8.0); NEUTROPHILS % 76.7 % (36.0-66.0); PLATELET COUNT, AUTOMATED 325 10^3/uL (150-450); RED BLOOD COUNT 4.81 10^6/uL (4.30-6.10); WHITE BLOOD COUNT 9.1 10^3/uL (4.0-10.0)
[2022-06-11] MEDS ORDERED: ISOVUE-370 76% 100ML VIAL As Ordered ONE (09:30)
[2022-06-11 09:51] LABS: LIPASE 40 U/L (12-53)
[2022-06-11 09:53] LABS: BILIRUBIN,DIRECT 0.3 MG/DL (<0.4)
[2022-06-11 09:54] LABS: ALBUMIN 3.8 G/DL (3.2-5.2); ALKALINE PHOSPHATASE 82 U/L (46-116); ALT/SGPT 29 U/L (7.0-40); AST/SGOT 17 U/L (<34); BILIRUBIN,TOTAL 0.8 MG/DL (0.3-1.2); BLOOD UREA NITROGEN 16 MG/DL (9-23); CALCIUM LEVEL 9.4 MG/DL (8.5-10.1); CARBON DIOXIDE LEVEL 28 MMOL/L (20-31); CHLORIDE LEVEL 101 MMOL/L (98-107); CREATININE FOR GFR 0.88 MG/DL (0.70-1.30); GLOMERULAR FILTRATION RATE > 60.0 (>60); GLUCOSE, FASTING 128 MG/DL (60-100); POTASSIUM SERUM 4.2 MMOL/L (3.5-5.1); SODIUM LEVEL 137 MMOL/L (136-145); TOTAL PROTEIN 7.8 G/DL (5.7-8.2)
[2022-06-11 10:30] LABS: APPEARANCE, URINE MANUAL CLEAR (CLEAR); COLOR, URINE MANUAL DK YELLOW (YELLOW); SPECIFIC GRAVITY,URINE MANUAL 1.025 (1.002-1.035)
[2022-06-11 10:31] LABS: BILIRUBIN, URINE MANUAL NEGATIVE (NEGATIVE); BLOOD URINE MANUAL NEGATIVE (NEGATIVE); GLUCOSE, URINE (UA) MANUAL NEGATIVE (NEGATIVE); KETONE, URINE MANUAL NEGATIVE (NEGATIVE); LEUKOCYTE ESTERASE, URINE MAN TRACE (NEGATIVE); NITRITE, URINE MANUAL NEGATIVE (NEGATIVE); PROTEIN, URINE MANUAL 2+ mg/dL (NEGATIVE); UROBILINOGEN, URINE MANUAL NORMAL (NORMAL)
[2022-06-11 11:03] LABS: AMORPHOUS SEDIMENT, URINE LARGE AMOUNT (NEGATIVE); BACTERIA, URINE NONE SEEN; HYALINE CAST, URINE 0-1 /lpf (0-1); RBC, URINE NONE SEEN /hpf (0-3); SQUAMOUS EPITHELIAL CELL URINE SMALL AMOUNT /hpf (SMALL AMT)
[2022-06-11] MEDS ORDERED: LEVO750T14 PO (11:39)
== END 2022-06-11 11:49 | disposition home or self-care (01) ==
LOC: M ED 07:23
DX: J18.9 Pneumonia, unspecified organism (principal); N26.1 Atrophy of kidney (terminal); K76.0 Fatty (change of) liver, not elsewhere classified; I10 Essential (primary) hypertension; I26.99 Other pulmonary embolism without acute cor pulmonale; Z79.811 Long term (current) use of aromatase inhibitors; Z79.810 Long term (current) use of selective estrogen receptor modulators (SERMs); Z79.899 Other long term (current) drug therapy

== ENCOUNTER → 2024-02-15 | Outpatient (REF) | payer BC ==
[~2024-02-15] MED LIST changes: +IBUP200T46 PO; +LEVO750T14 PO; +LOSA25TA13 PO
[2024-02-15 13:52] LABS: HEMOGLOBIN A1c 5.3 % (4.0-6.0)
[2024-02-15 14:07] LABS: CHOLESTEROL RISK RATIO 3.12 (<5); HDL CHOLESTEROL 47.1 MG/DL (>40); LDL CHOLESTEROL 85.9 MG/DL (<100); NON-HDL-C 99.9 MG/DL
== END ==
LOC: M SFHCADAM 09:48
PROVIDERS: ATTEND Physician Assistant Medical
DX: Z00.00 Encounter for general adult medical examination without abnormal findings (principal); N18.31 Chronic kidney disease, stage 3a; N26.1 Atrophy of kidney (terminal)